=== PATIENT | female | born 1980 | race Caucasian/White ===

== ENCOUNTER 2017-07-15 09:47 | Emergency (ER) | payer BC ==
[2017-07-15 09:48] VITALS: BMI 20.3
[2017-07-15 09:59] VITALS: O2SAT 100
[2017-07-15 10:26] VITALS: BP 114/70; PULSE 92; RESP 18; TEMP 98.1
== END 2017-07-15 10:55 | disposition left against medical advice (07) ==
LOC: ED 09:47
DX: Z02.89 Encounter for other administrative examinations (principal); R10.9 Unspecified abdominal pain